=== PATIENT | male | born 1955 | race Caucasian/White ===

== ENCOUNTER 2024-03-12 07:03 | Emergency (ER) | payer MEDICARE, BC ==
[~2024-03-12] VITALS: Ht 185.4 cm; Wt 94.1 kg
[2024-03-12 07:11] VITALS: TEMP 97.2
[2024-03-12] MEDS ORDERED: Ondansetron 4 MG/2 ML VIAL IV ONE (07:30)
[2024-03-12] MEDS ORDERED: NS 1,000 ML IV ONE (07:30)
[2024-03-12 07:40] LABS: BASO % 0.3 % (0.0-2.0); EOS # 0.1 K/mm3 (0.0-0.7); EOS % 2.1 % (0.0-4.0); GRAN # 4.4 K/mm3 (1.4-6.5); GRAN % 71.2 % (42.2-75.2); HEMATOCRIT 44.6 % (42.0-52.0); HEMOGLOBIN 14.5 g/dl (13.5-18.0); LYMPH # 1.2 K/mm3 (1.2-3.4); LYMPH % 19.5 % (20.0-51.0); MEAN CELL VOLUME 95 fl (80.0-100.0); MEAN CORPUSCULAR HEMOGLOBIN 31 pg (27-31); MEAN CORPUSCULAR HGB CONC 33 g/dl (33.0-37.0); MEAN PLATELET VOLUME 9.6 fl (7.4-10.4); MONO # 0.4 K/mm3 (0.1-0.6); MONO % 6.6 % (1.7-9.3); PLATELET COUNT 191 K/mm3 (130-400); REDCELL DISTRIBUTION WIDTH-CV 13.3 % (11.5-14.5)
[2024-03-12] MEDS ORDERED: Ketorolac 30 MG/ML VIAL IV ONE (07:45)
[2024-03-12 08:02] LABS: ALBUMIN 3.7 g/dL (3.4-4.8); BILIRUBIN,TOTAL 0.4 mg/dL (0.2-1.2); C-REACTIVE PROTEIN 0.12 mg/dL (0.00-0.50); CREATININE, serum 1.2 mg/dL (0.72-1.25); POTASSIUM 3.7 mEq/L (3.5-4.5); TOTAL PROTEIN 6.8 g/dl (6.2-8.1)
[2024-03-12] MEDS ORDERED: NS 100 ML IV SCH (08:44)
[2024-03-12] MEDS ORDERED: Iohexol 300 - 100 ML VIAL IV ONE (08:44)
[2024-03-12] MEDS ORDERED: ZOFRAN ODT4 MG PO (09:40)
[2024-03-12 10:13] VITALS: BP 130/83; PULSE 56
== END 2024-03-12 10:14 | disposition home or self-care (01) ==
LOC: COL.ER 07:03
PROVIDERS: Emergency Medicine
DX: K52.9 Noninfective gastroenteritis and colitis, unspecified (principal)
CPT/HCPCS: J1885; J2405; J7030; Q9967